=== PATIENT | male | born 1995 | race African-American/Black ===

== ENCOUNTER 2016-11-04 03:38 | Emergency (ER) | payer MEDICAID, OTHER ==
[~2016-11-04] VITALS: Ht 188 cm; Wt 67.4 kg
[~2016-11-04 03:38] MED LIST: ADDE10CA OR; RISP.5
[2016-11-04 03:42] VITALS: BP 128/76; PULSE 61; RESP 18; TEMP 97.8; O2SAT 98
[2016-11-04] MEDS ORDERED: ONDANSETRON HCL 4 MG/2 ML VIAL IV PUSH ONE (04:00)
[2016-11-04] MEDS ORDERED: SODIUM CHLOR 0.9% 1000 ML INJ 1,000 ML IV ONE (04:00)
--- NOTE | 2016-11-04 04:08 | PD ---
HPI Chief Complaint: Respiratory Symptoms Time Seen by Provider: 03:59 Travel History International Travel<30 days: No Contact w/Intl Traveler<30days: No Traveled to known affect area: No History of Present Illness HPI This is a 21-year-old male who presents to the emergency department reporting that he feels short of breath and has vomited several times this evening. He denies any associated abdominal pain, fevers or chills. He says his been feeling short of breath intermittently for several months, feeling like he can' t catch his breath, moderate severity associated with some chest tightness. He denies alcohol or drug use. PFSH Past Medical History ADHD: Yes Cardiovascular Problems: No Diabetes: No Diminished Hearing: No Psychiatric: Yes (mother states long hx ADHD, ODD) Immunizations Current: Yes Migraines: No Seizures: No Sleep Apnea: Yes Ulcer: No Past Surgical History Surgical History: No Previous Surgery Social History Alcohol Use: No Tobacco Use: Yes Substance Use: No Allergies-Medications (Allergen,Severity, Reaction): Coded Allergies: No Known Allergies (Verified , 11/04/16) Reported Meds & Prescriptions Reported Meds & Active Scripts Active Reported Risperdal (Risperidone) 0.5 Mg Tab 0.5 Mg .XX 9AM AND 4PM Adderall Xr (Amphetamine/Dextroamphetamine) 10 Mg Cap 10 Mg OR DAILY Review of Systems Except as stated in HPI: all other systems reviewed are Neg Physical Exam Narrative GENERAL: Disheveled, smells like vomit SKIN: Warm and dry. HEAD: Atraumatic. Normocephalic. EYES: Pupils equal and round. No injection or drainage. ENT: Moist mucous membranes NECK: Trachea midline. CARDIOVASCULAR: Regular rate and rhythm. No murmur appreciated. RESPIRATORY: Clear to auscultation. Breath sounds equal bilaterally. GASTROINTESTINAL: Abdomen soft, non-tender, nondistended. MUSCULOSKELETAL: No obvious deformities. NEUROLOGICAL: Awake and alert. No obvious cranial nerve deficits. Moving all extremities. PSYCHIATRIC: Appropriate mood and affect; insight and judgment normal. Data Data Last Documented VS Vital Signs Date Time Temp Pulse Resp B/P Pulse Ox O2 Delivery O2 Flow Rate FiO2 11/04/16 03:42 97.8 61 18 128/76 98 Orders Complete Blood Count With Diff (11/04/16 03:59) Comprehensive Metabolic Panel (11/04/16 03:59) Lipase (11/04/16 03:59) ^ Insert Iv (11/04/16 03:59) Sodium Chlor 0.9% 1000 Ml Inj (Ns 1000 M (11/04/16 04:00) Ondansetron Inj (Zofran Inj) (11/04/16 04:00) Labs Laboratory Tests Test 11/04/16 04:15 White Blood Count 11.9 TH/MM3 Red Blood Count 5.09 MIL/MM3 Hemoglobin 15.1 GM/DL Hematocrit 44.9 % Mean Corpuscular Volume 88.1 FL Mean Corpuscular Hemoglobin 29.7 PG Mean Corpuscular Hemoglobin 33.7 % Concent Red Cell Distribution Width 13.4 % Platelet Count 220 TH/MM3 Mean Platelet Volume 7.9 FL Neutrophils (%) (Auto) 76.9 % Lymphocytes (%) (Auto) 15.7 % Monocytes (%) (Auto) 6.7 % Eosinophils (%) (Auto) 0.3 % Basophils (%) (Auto) 0.4 % Neutrophils # (Auto) 9.1 TH/MM3 Lymphocytes # (Auto) 1.9 TH/MM3 Monocytes # (Auto) 0.8 TH/MM3 Eosinophils # (Auto) 0.0 TH/MM3 Basophils # (Auto) 0.1 TH/MM3 CBC Comment DIFF FINAL Differential Comment Sodium Level 138 MEQ/L Potassium Level 3.6 MEQ/L Chloride Level 102 MEQ/L Carbon Dioxide Level 24.4 MEQ/L Anion Gap 12 MEQ/L Blood Urea Nitrogen 12 MG/DL Creatinine 1.09 MG/DL Estimat Glomerular Filtration 104 ML/MIN Rate Random Glucose 74 MG/DL Calcium Level 8.8 MG/DL Total Bilirubin 1.4 MG/DL Aspartate Amino Transf 30 U/L (AST/SGOT) Alanine Aminotransferase 36 U/L (ALT/SGPT) Alkaline Phosphatase 84 U/L Total Protein 7.3 GM/DL Albumin 4.1 GM/DL Lipase 73 U/L [facility] Medical Decision Making Medical Screen Exam Complete: Yes Emergency Medical Condition: Yes Interpretation(s) Afebrile, no tachycardia, normotensive Mild leukocytosis Electrolytes are reassuring Total bilirubin is 1.4 Lipase is normal Differential Diagnosis Pancreatitis, gastritis, gastroenteritis Narrative Course This is a 21-year-old male who reports that he is intermittently having difficulty breathing and he vomited several times today. The shortness of breath that he has a subacute. He is not hypoxic and he is not in any respiratory distress and has a normal lung exam. I think his bigger concern is his vomiting. Labs were obtained which were reassuring. He is given some IV hydration and nausea medication. I don't think his symptoms reflect a medical emergency. I suspect he has some underlying mental illness. I think the patient is safe for discharge and can make his own decisions. He was discharged home. Diagnosis Primary Impression: Vomiting Qualified Code: R11.2 - Non-intractable vomiting with nausea, unspecified vomiting type Patient Instructions: General Instructions Additional Instructions: If you develop severe chest pain, shortness of breath, sweating, lightheadedness , dizziness or difficulty breathing return to the emergency department immediately. Followup with your primary care physician in 2-3 days if your symptoms are not resolved. Med/Other Pt SpecificInfo: No Change to Meds Disposition: 01 DISCHARGE HOME Condition: Stable Lisset Abdalla MD Nov 04, 2016 04:08
[2016-11-04 04:36] LABS: AUTOMATED NEUTROPHIL # 9.1 TH/MM3 (1.8-7.7); BASOPHIL # 0.1 TH/MM3 (0-0.2); BASOPHIL % 0.4 % (0.0-2.0); EOSINOPHIL % 0.3 % (0.0-4.0); HEMATOCRIT 44.9 % (39.0-51.0); HEMO FLAGS DIFF FINAL; LYMPH % 15.7 % (9.0-44.0); LYMPHOCYTE # 1.9 TH/MM3 (1.0-4.8); MEAN CELL VOLUME 88.1 FL (80.0-100.0); MEAN CORPUSCULAR HEMOGLOBIN 29.7 PG (27.0-34.0); MEAN CORPUSCULAR HGB CONC 33.7 % (32.0-36.0); MONO % 6.7 % (0.0-8.0); NEUT % 76.9 % (16.0-70.0); PLATELET COUNT 220 TH/MM3 (150-450); RED BLOOD COUNT 5.09 MIL/MM3 (4.50-5.90); RED CELL DISTRIBUTION WIDTH 13.4 % (11.6-17.2); WHITE BLOOD COUNT 11.9 TH/MM3 (4.0-11.0)
[2016-11-04 04:50] LABS: ALT (GPT) 36 U/L (12-78); ANION GAP 12 MEQ/L (5-15); AST (GOT) 30 U/L (15-37); BICARBONATE 24.4 MEQ/L (21.0-32.0); BLOOD UREA NITROGEN 12 MG/DL (7-18); CHLORIDE 102 MEQ/L (98-107); GLOMERULAR FILTRATION RATE 104 ML/MIN (>89); POTASSIUM 3.6 MEQ/L (3.5-5.1); SODIUM (NA) 138 MEQ/L (136-145)
[2016-11-04 04:52] LABS: ALKALINE PHOSPHATASE 84 U/L (45-117); TOTAL BILIRUBIN ADULT 1.4 MG/DL (0.2-1.0)
== END 2016-11-04 05:43 | disposition home or self-care (01) ==
LOC: NEPC 03:38
DX: R11.2 Nausea with vomiting, unspecified (principal); R06.02 Shortness of breath; G47.30 Sleep apnea, unspecified; Z72.0 Tobacco use
CPT/HCPCS: 80053; 83690; 85025; 96374; 99284; J2405; J7030

== ENCOUNTER 2017-01-02 01:38 | Emergency (ER) | payer MEDICAID, OTHER ==
[2017-01-02 01:44] VITALS: BP 160/79; PULSE 113; RESP 18; TEMP 99.2; O2SAT 96
[2017-01-02 02:05] VITALS: BP 126/75; PULSE 74; RESP 16; O2SAT 99
--- NOTE | 2017-01-02 02:26 | PD ---
HPI Chief Complaint: Respiratory Symptoms Time Seen by Provider: 02:19 Travel History International Travel<30 days: No Contact w/Intl Traveler<30days: No Traveled to known affect area: No History of Present Illness HPI 21-year-old male with reported history of asthma presents to the emergency department for 3 months of shortness of breath. Patient more recently notices that he's having difficulty with nasal congestion. Patient has had episodes of posttussive emesis. No fever or chills. No yellow green phlegm production no epistaxis. Patient denies chest pain or pleuritic pain. Patient has family history of asthma. Patient states he occasionally uses a rescue inhaler without relief. No recent steroid use. Patient demonstrated to occasional tobacco use and marijuana use. Patient denies other concerns or complaints. No hematemesis no coffee-ground emesis no bilious emesis no abdominal pain. No change in bowel habits or urinary symptoms. No injury or fall. PFSH Past Medical History Narrative Medical ADHD asthma; no surgeries; tobacco use marijuana use; nursing notes reviewed ADHD: Yes Cardiovascular Problems: No Diabetes: No Diminished Hearing: No Psychiatric: Yes (mother states long hx ADHD, ODD) Immunizations Current: Yes Migraines: No Seizures: No Sleep Apnea: Yes Ulcer: No Social History Alcohol Use: No Tobacco Use: Yes Substance Use: No Allergies-Medications (Allergen,Severity, Reaction): Coded Allergies: No Known Allergies (Verified , 01/02/17) Reported Meds & Prescriptions Reported Meds & Active Scripts Active Proventil Hfa 6.7 GM Inh (Albuterol Sulfate) 90 Mcg/Act Aer 2 Puff INH Q4-6H PRN Phenergan (Promethazine HCl) 25 Mg Tab 25 Mg PO Q6H PRN Review of Systems Except as stated in HPI: all other systems reviewed are Neg General / Constitutional: No: Fever, Chills HENT: Positive: Congestion, No: Sore Throat, Nosebleed Cardiovascular: No: Chest Pain or Discomfort Respiratory: Positive: Shortness of Breath, Wheezing, No: Cough, Orthopnea, Hemoptysis, Stridor, Pleuritic Pain Gastrointestinal: Positive: Vomiting, No: Nausea, Abdominal Pain (posttussive) Genitourinary: No: Flank Pain Musculoskeletal: No: Myalgias, Arthralgias Skin: No Rash Neurologic: No: Weakness Psychiatric: No: Anxiety Hematologic/Lymphatic: No: Easy Bruising Physical Exam Narrative GENERAL: Well-developed well-nourished male in no acute distress no respiratory distress; no stridor or hoarseness. SKIN: Warm and dry. HEAD: Normocephalic. EYES: No scleral icterus. No injection or drainage. ENT: Mucous membranes moist airway is patent NECK: Supple, trachea midline. No JVD or lymphadenopathy. CARDIOVASCULAR: Regular rate and rhythm without murmurs, gallops, or rubs. RESPIRATORY: Breath sounds equal bilaterally few and expiratory wheezes. No accessory muscle use. GASTROINTESTINAL: Abdomen soft, non-tender, nondistended. MUSCULOSKELETAL: No cyanosis, or edema. BACK: Nontender without obvious deformity. No CVA tenderness. Data Data Last Documented VS Vital Signs Date Time Temp Pulse Resp B/P Pulse Ox O2 Delivery O2 Flow Rate FiO2 01/02/17 02:05 74 16 126/75 99 Room Air 01/02/17 01:44 99.2 Orders Ondansetron Odt (Zofran Odt) (01/02/17 02:30) Albuterol-Ipratropium Neb (Duoneb Neb) (01/02/17 02:30) Chest, Single Ap (01/02/17 ) [facility] Medical Decision Making Medical Screen Exam Complete: Yes Emergency Medical Condition: Yes Medical Record Reviewed: Yes Interpretation(s) cxr: No pneumothorax; no lobar infiltrate Differential Diagnosis Bronchitis, rhinosinusitis, exacerbation asthma, pneumonia, pneumothorax, GERD Narrative Course Patient administered Zofran ODT 4 mg times one dose, DuoNeb updraft 1; chest x- ray ordered; patient presents with symmetric bilateral breath sounds room air O2 saturations 98-97% without pleuritic chest pain with episodes of vomiting. Patient reports he becomes very anxious when he notes clear mucus when he vomits and clear mucus that drains to his nose during episodes of emesis that interfere with his ability to breathe comfortably. Patient seen as recently as 10/2016 for same complaint. At that time lab values were found to be in normal range and no acute abnormality was identified. Imaging study resulted Diagnosis Primary Impression: Rhinosinusitis Additional Impressions: Vomiting Qualified Code: R11.10 - Vomiting, intractability of vomiting not specified, presence of nausea not specified, unspecified vomiting type Reactive airway disease Qualified Code: J45.909 - Reactive airway disease, unspecified asthma severity , uncomplicated Referrals: [facility] call for appointment Primary Care Physician call for appointment Patient Instructions: General Instructions Additional Instructions: Increase fluid hydration Follow-up with primary care provider Use inhaler as needed for wheezing or shortness of breath; do not smoke cigarettes or use marijuana Take acetaminophen/Tylenol as often as every 4 hours as needed for fever 100.4 F or greater Use Phenergan as needed for nausea and/or vomiting Recommend [id number] Nasacort for sinus congestion May use [id number] Afrin decongestant nasal spray 1-2 sprays to each nostril for 2-3 days avoid overuse to avoid rebound nasal congestion Return to the emergency department for any concerns or change in condition Med/Other Pt SpecificInfo: Prescription(s) given Scripts Albuterol 6.7 GM Inh (Proventil Hfa 6.7 GM Inh)90 Mcg/Act Aer2 Puff INH Q4-6H PRN (SHORTNESS OF BREATH) #1 INHALER Ref 0 Prov:Vivian Witt MD 01/02/17 Promethazine (Phenergan)25 Mg Tab25 Mg PO Q6H PRN (Nausea/Vomiting) #10 TAB Ref 0 Prov:Vivian Witt MD 01/02/17 Disposition: 01 DISCHARGE HOME Condition: Stable Vivian Witt MD January 02, 2017 02:26
[2017-01-02] MEDS ORDERED: RESP: ALBUTEROL 2.5 MG/IPRATROPIUM 0.5 MG NEB (SCH) NEB ONE (02:30)
[2017-01-02] MEDS ORDERED: ONDANSETRON ODT 4 MG TAB PO ONE (02:30)
[2017-01-02] MEDS ORDERED: PROM25TA5 PO (02:36)
[2017-01-02] MEDS ORDERED: ALBU6.7H INH (02:36)
--- NOTE | 2017-01-02 03:11 | RADRPT ---
EXAM DATE/TIME: 01/02/2017 02:34 [place] COMPARISON: No previous studies available for comparison. INDICATIONS : Short of breath. MEDICAL HISTORY : Asthma. SURGICAL HISTORY : None. ENCOUNTER: Initial ACUITY: 1 week PAIN SCORE: 0/10 LOCATION: Bilateral chest FINDINGS: 2 portable frontal views of the chest show the lungs to be hyperaerated but clear. No effusions. Hear t is normal in size. CONCLUSION: Hyperaeration. Clear lungs. Gurpreet Pena Jr., MD on January 02, 2017 at 3:09 Board Certified Radiologist. This report was verified electronically.
== END 2017-01-02 03:06 | disposition home or self-care (01) ==
LOC: NEPC 01:38
DX: J32.9 Chronic sinusitis, unspecified (principal); R11.2 Nausea with vomiting, unspecified; J45.909 Unspecified asthma, uncomplicated; G47.30 Sleep apnea, unspecified; F12.90 Cannabis use, unspecified, uncomplicated; Z72.0 Tobacco use
CPT/HCPCS: 71010; 94664; 99283